=== PATIENT | female | born 1940 | race Caucasian/White ===

== ENCOUNTER 2017-07-31 14:32 | Emergency (ER) ==
--- NOTE | 2017-07-31 14:56 | RAD ---
RIGHT HAND 3 VIEWS: Date: 07/31/17 HISTORY: Pain. Fall. Swelling. COMPARISON: None. FINDINGS: There is degenerative change of the first carpometacarpal joint space. Osseous structures are intact and there is no evidence of fracture. IMPRESSION: 1. 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 2. No fracture. POS: [facility]
== END 2017-07-31 15:10 | disposition home or self-care (01) ==
LOC: ERS 14:32
DX: S63.91XA Sprain of unspecified part of right wrist and hand, initial encounter (principal); E78.5 Hyperlipidemia, unspecified; I10 Essential (primary) hypertension; Z79.899 Other long term (current) drug therapy; W19.XXXA Unspecified fall, initial encounter

== ENCOUNTER 2021-12-09 10:10 | Outpatient (CLI) | payer MEDICARE | END 2021-12-09 10:11 | disposition home or self-care (01) | LOC: BICMAMMO 10:10 | PROVIDERS: ATTEND Internal Medicine | DX: Z12.31 Encounter for screening mammogram for malignant neoplasm of breast (principal); Z91.89 Other specified personal risk factors, not elsewhere classified | CPT/HCPCS: 77063; 77067 ==

== ENCOUNTER 2022-12-22 13:13 | Outpatient (CLI) | payer MEDICARE | END 2022-12-22 13:14 | disposition home or self-care (01) | LOC: BICMAMMO 13:13 | PROVIDERS: ATTEND Family Medicine | DX: Z12.31 Encounter for screening mammogram for malignant neoplasm of breast (principal); Z91.89 Other specified personal risk factors, not elsewhere classified | CPT/HCPCS: 77063; 77067 ==

== ENCOUNTER 2025-01-03 12:44 | Outpatient (CLI) | payer MEDICARE | END 2025-01-03 12:45 | disposition home or self-care (01) | LOC: BICMAMMO 12:44 | PROVIDERS: ATTEND Family Medicine | DX: Z12.31 Encounter for screening mammogram for malignant neoplasm of breast (principal); Z80.3 Family history of malignant neoplasm of breast; Z91.89 Other specified personal risk factors, not elsewhere classified | CPT/HCPCS: 77063; 77067 ==